=== PATIENT | female | born 1995 | race Caucasian/White ===

== ENCOUNTER 2018-04-08 06:18 | Emergency (ER) | payer OTHER ==
--- NOTE | 2018-04-08 07:30 | ER Document Report ---
HPI - HPI Patient complains to provider of: sore throat Onset: Other - 3 days Pain Level: 1 Context: 23 yo female c/o fever and sore throat for 3 days. No cough. Associated Symptoms: None Exacerbated by: Other - swallowing Relieved by: Denies - ROS ROS below otherwise negative: Yes Systems Reviewed and Negative: Yes All other systems reviewed and negative - CONSTITUTIONAL Constitutional: DENIES: Fever, Chills - EENT EENT: REPORTS: Sore Throat, Ear Pain. DENIES: Eye problems - NEURO Neurology: DENIES: Headache, Weakness, Vision blurred, Dizzinesss / Vertigo - CARDIOVASCULAR Cardiovascular: DENIES: Chest pain - RESPIRATORY Respiratory: DENIES: Trouble Breathing, Coughing - GASTROINTESTINAL Gastrointestinal: DENIES: Abdominal Pain, Black / Bloody Stools - URINARY Urinary: DENIES: Dysuria, Urgency, Frequency - REPRODUCTIVE LMP: september - MUSCULOSKELETAL Musculoskeletal: DENIES: Extremity pain Past Medical History - General Information source: Patient - Social History Smoking Status: Current Every Day Smoker Chew tobacco use (# tins/day): No Frequency of alcohol use: None Drug Abuse: None Lives with: Family Family History: Reviewed & Not Pertinent Patient has suicidal ideation: No Patient has homicidal ideation: No - Medical History Medical History: Negative Renal/ Medical History: Denies: Hx Peritoneal Dialysis Surgical Hx: Negative Vertical Provider Document - CONSTITUTIONAL Agree With Documented VS: Yes Exam Limitations: No Limitations General Appearance: No Apparent Distress - INFECTION CONTROL TRAVEL OUTSIDE OF THE [place] IN LAST 30 DAYS: No - HEENT HEENT: Pharyngeal Erythema. negative: Conjuctival Injection, Tympanic Membrane Red - NECK Neck: Supple, Lymphadenopathy-Left - anterior, Lymphadenopathy-Right - anterior - RESPIRATORY Respiratory: Breath Sounds Normal, No Respiratory Distress - CARDIOVASCULAR Cardiovascular: Regular Rate, Regular Rhythm - GI/ABDOMEN Gastrointestinal: Abdomen Soft, Abdomen Non-Tender, No Organomegaly Course - Vital Signs Vital signs: Temp Pulse Resp BP Pulse Ox 98.6 F 104 H 18 133/63 H 97 04/08/18 06:22 04/08/18 06:22 04/08/18 06:22 04/08/18 06:22 04/08/18 06:22 Discharge - Discharge Clinical Impression: Sore throat, Tonsillitis Condition: Good Disposition: HOME, SELF-CARE Instructions: Penicillin V K ([facility]), Sore Throat ([facility]), Tonsillitis ([facility]) Additional Instructions: Finish the penicillin even if you feel better Plenty of fluids Tylenol up to 4000 mg a day for pain Motrin up to 800 mg 3 times a day for inflammation Return to the emergency room for any worsening of the symptoms Prescriptions: Penicillin V Potassium [Penicillin Vk 500 mg Tablet] 500 mg PO QID #40 tablet Forms: Return to Work
[2018-04-08] MEDS ORDERED: PENICILLIN V POTASSIUM 500 MG TABLET PO ONE (07:39)
[2018-04-08 07:57] VITALS: BP 121/57
== END 2018-04-08 07:57 | disposition home or self-care (01) ==
LOC: ER 06:18
DX: J03.90 Acute tonsillitis, unspecified (principal); R50.9 Fever, unspecified; H92.09 Otalgia, unspecified ear; F17.200 Nicotine dependence, unspecified, uncomplicated; R59.0 Localized enlarged lymph nodes
CPT/HCPCS: 87880; 99283